=== PATIENT | male | born 1970 | race Caucasian/White ===

== ENCOUNTER → 2019-12-11 | Outpatient (CLI) | payer BC ==
--- NOTE | 2019-12-11 14:46 | Diagnostic Imaging Report ---
INDICATION: Injury to the right thumb. TIME OF EXAM: 2:07 PM. TECHNIQUE: Three views of the right thumb were obtained. FINDINGS: The alignment is normal. The 1st metacarpal as well as the proximal and distal phalanx appear to be intact. No fractures are seen. There is a tiny osseous density adjacent to the distal aspect of the 1st metacarpal, acuity indeterminate. IMPRESSION: No acute abnormality is detected. Dictated by: Dictated on workstation # [id number]
== END ==
LOC: RAD 13:49
PROVIDERS: ATTEND Nurse Practitioner Family
DX: S69.91XA Unspecified injury of right wrist, hand and finger(s), initial encounter (principal); X58.XXXA Exposure to other specified factors, initial encounter
CPT/HCPCS: 73140

== ENCOUNTER 2021-02-27 05:37 | Outpatient (CLI) | payer BC ==
[~2021-02-27] VITALS: Ht 175.3 cm; Wt 75.0 kg
[2021-02-27] MEDS ORDERED: ATOR20TA66 PO (11:45)
== END 2021-02-27 13:24 | disposition home or self-care (01) ==
LOC: PREOP 05:37
PROVIDERS: ATTEND Internal Medicine
DX: Z01.818 Encounter for other preprocedural examination (principal)

== ENCOUNTER → 2021-03-06 | Day surgery (SDC) | payer BC ==
--- NOTE | 2021-02-27 06:28 | HISTORY AND PHYSICAL ---
DATE OF SERVICE: COLONOSCOPY H AND P HISTORY OF PRESENT ILLNESS: The patient is a 50-year-old white male referred by Dr. Rollins for his first screening colonoscopy. He is deemed to be of average risk as he is not aware of any family history for colon cancer or polyps. He denies melena or bright red blood per rectum, change in bowel habit, abdominal pain or change in weight. There is no history of inflammatory bowel disease or any chronic issues with diarrhea. PAST MEDICAL HISTORY: Significant for hyperlipidemia for which he takes atorvastatin 20 mg daily. He has significant seasonal allergies with an asthmatic component for which he is on Claritin-D seasonally and albuterol p.r.n. He takes no other medication. FAMILY HISTORY: Father of a heart attack at the age of 48. Mother is still living at the age of 74 with no reported health problems. PAST SURGICAL HISTORY: He has had arthroscopic knee surgery. No abdominal related surgery. SOCIAL HISTORY: He has a 10 to [id number] smoking history, quit 10 years ago. Reports he averages around 2 beers per day in regards to a total alcohol intake. REVIEW OF SYSTEMS: CONSTITUTIONAL: Denies night sweats, chills, fever, is fully COVID vaccinated. GASTROINTESTINAL: As noted in the HPI. PULMONARY: Has had no recent inhaler use. Denies cough, wheezing or shortness of breath. CARDIOVASCULAR: Denies chest pain, dyspnea on exertion, orthopnea, PND or pedal edema. PHYSICAL EXAMINATION: GENERAL: Reveals well-appearing white male in no acute distress. VITAL SIGNS: Weight 167.2 pounds. Blood pressure 126/82, heart rate 70 and regular. HEENT: Unremarkable. Sclerae nonicteric. CHEST: Clear. CARDIOVASCULAR: Revealed a regular rate and rhythm without murmur, S3 or S4. ABDOMEN: Soft, supple without mass, organomegaly or tenderness. No bruits noted. Bowel sounds positive. EXTREMITIES: Reveal no cyanosis, clubbing or edema. ASSESSMENT AND PLAN: The patient is set up for screening colonoscopy, deemed to be of average risk on 03/06/2021. Prep instructions were given and questions were answered. I thank you for the referral of this pleasant gentleman. Job ID: [id number] DocumentID: [id number] Dictated Date: 02/16/2021 10:55:05 Sieve Repairer Date: 02/16/2021 11:19:24 Dictated By: NÉSTOR BROWN MD
[~2021-03-06] VITALS: Ht 175.3 cm; Wt 75.0 kg
[~2021-03-06] MED LIST: ATOR20TA66 PO; LACTATED RINGERS 1,000 ML IV ONE; LACTATED RINGERS 1,000 ML IV STA; LIDOCAINE JELLY 2% 6 ML SYRINGE MM PRN; LIDOCAINE JELLY 2% 6 ML SYRINGE ONE; PROPOFOL INJECTION 50 ML IV ONE
[2021-03-06 07:40] VITALS: BP 115/74
--- NOTE | 2021-03-06 07:50 | Pre-Op Note & Conscious Sedat ---
Pre-Operative Progress Note H&P Reviewed The H&P was reviewed, patient examined and no changes noted. Date H&P Reviewed: Mar 06, 2021 Time H&P Reviewed: 07:49 Conscious Sedation Pre-Proced ASA Score 2 For ASA 3 and 4: Consider anesthesia and medical clearance. Also, for patients with a history of failed moderate sedation consider anesthesia. Airway Lungs Heart ASA score ASA 1: a normal healthy patient ASA 2: a patient with a mild systemic disease (mid diabetes, controlled hypertension, obesity ASA 3: a patient with a severe systemic disease that limits activity (angina, COPD, prior Myocardial infarction) ASA 4: a patient with an incapacitating disease that is a constant threat to life (CHF, renal failure) ASA 5: a moribund patient not expected to survive 24 hrs. (ruptured aneurysm) ASA 6: a declared brain- patient whose organs are being harvested. For emergent operations, add the letter E after the classification Mallampati Classification Grade 2 Sedation Plan Analgesia, Amnesia, Plan communicated to team members, Discussed options with patient/fam, Discussed risks with patient/fam The patient is an appropriate candidate to undergo the planned procedure, sedation, and anesthesia. The patient immediately re-assessed prior to indication. NÉSTOR BROWN MD Mar 06, 2021 07:50
[2021-03-06 08:29] VITALS: BP 114/74
[2021-03-06 08:30] VITALS: BP 102/65
[2021-03-06 08:50] VITALS: BP 120/89
[2021-03-06 08:52] VITALS: BP 120/89
--- NOTE | 2021-03-06 10:12 | OPERATIVE REPORT ---
DATE OF SERVICE: COLONOSCOPY SUMMARY INDICATION FOR THE PROCEDURE: Screening colonoscopy. The patient was placed in the left lateral decubitus position. Prior to undergoing colonoscopy, digital rectal evaluation was performed. Anal sphincter tone was normal and the perianal reflexes intact. Prostate is normal in size and anodular on digital inspection. No abnormalities were noted on digital inspection of anal canal or distal rectal vault. The colonoscope was inserted into the rectum and under direct visualization advanced to cecum. The cecum was identified by identification of ileocecal valve and cecal strap. Photographic documentation was obtained. Careful inspection was made as the colonoscope was withdrawn. Quality of prep was good. FINDINGS: There was no evidence for external hemorrhoids. One small grade I internal hemorrhoid complex was noted. The rectum was otherwise unremarkable. Present in the distal sigmoid colon were 2 diminutive hyperplastic appearing polyps. They were biopsied, ablated and submitted for histopathology. The remainder of the sigmoid colon was unremarkable with no evidence for diverticular disease. The descending colon, splenic flexure and transverse colon were unremarkable. Present at the hepatic flexure was a 3 mm sessile polyp. It was photographed and biopsied and ablated with no blood loss. The ascending colon and cecum were unremarkable. ASSESSMENT: Three diminutive polyps were removed today. As long as there are no surprise on histopathology report and the patient continues to report no family history for colon cancer, we would advocate consideration for repeat screening colonoscopy in 10 years. One grade I internal hemorrhoid complex was noted and the prostate was unremarkable to digital inspection. I thank you for the referral of this pleasant gentleman. Job ID: [id number] DocumentID: [id number] Dictated Date: 03/06/2021 08:28:25 Bundles Hanger Date: 03/06/2021 10:11:42 Dictated By: NÉSTOR BROWN MD
--- NOTE | 2021-03-06 11:49 | Anesthesia-General Post-Op ---
MAC Patient Condition Mental Status/LOC: Same as Preop Cardiovascular: Satisfactory Nausea/Vomiting: Absent Respiratory: Satisfactory Pain: Controlled Complications: Absent Post Op Complications Complications None Follow Up Care/Instructions Patient Instructions None needed. Anesthesiology Discharge Order Discharge Order Patient is doing well, no complaints, stable vital signs, no apparent adverse anesthesia problems. No complications reported per nursing. HALEIGH RODRÍGUEZ CRNA Mar 06, 2021 11:49
== END ==
LOC: ENDO 07:25
PROVIDERS: ATTEND Internal Medicine
DX: Z12.11 Encounter for screening for malignant neoplasm of colon (principal); D12.5 Benign neoplasm of sigmoid colon; K63.5 Polyp of colon; K64.0 First degree hemorrhoids; E78.5 Hyperlipidemia, unspecified; J45.909 Unspecified asthma, uncomplicated; Z87.891 Personal history of nicotine dependence; Z79.899 Other long term (current) drug therapy; Z82.49 Family history of ischemic heart disease and other diseases of the circulatory system